=== PATIENT | male | born 1945 | race Caucasian/White ===

== ENCOUNTER 2024-03-15 12:26 | Emergency (ER) | payer OTHER, SELFPAY ==
[2024-03-15 12:31] VITALS: BP 117/72
[2024-03-15 12:38] VITALS: BMI 28.0
--- NOTE | 2024-03-15 12:44 | ED.GENMED ---
History of Present Illness
General
Chief Complaint: Cold/Flu/URI Symptoms
Time Seen by Provider: 03/15/24 12:42
History of Present Illness
History of Present Illness:
78-year-old male with history of hypertension presenting to the emergency department for generalized weakness and fatigue with cough. Patient reports he has been feeling this past few days. He notes positive exposure to COVID, his brother was
positive for COVID. Cough has been nonproductive. Notes diffuse bodyaches, upper back pain. He reports generalized fatigue and dyspnea. He has been taking aspirin for his symptoms as well as a flu medication. Denies any active chest pain.
Denies abdominal pain or vomiting. He has never had a COVID vaccination. He denies additional acute medical complaints.
Phy Exam
Physical Exam
Physical Exam:
General: Well-appearing, no clinical signs of dehydration, nontoxic and in no acute distress
HEENT: protecting airway
Neck: appears supple
CV: Normal heart rate, regular rhythm
Resp: No accessory muscle use, no increased work of breathing, lungs clear to auscultation bilaterally
Abd: Soft and non-distended, no tenderness to palpation
Extremities: No deformities, no swelling, no erythema
Neuro: alert, no focal neurologic deficit
: deferred
Rectal: deferred
Psych: Normal affect
Skin: Intact
Sepsis
Sepsis Screening
Sepsis Assessment: Sepsis Ruled Out
Sepsis Screen
Sepsis Screen: Sepsis Ruled Out
Date: 03/15/24
Time: 16:39
Course
Orders/Labs/Results
Orders:
Orders
03/15/24 12:43
Urinalysis Reflex To Culture Urgent
Date Specimen was Collected: 03/15/24
Time Specimen was Collected: 12:47
0.9% Sodium Chloride 1000 ml [Nss] 1,000 ml IV BOLUS
Acetaminophen [Tylenol] 1,000 mg PO NOW STA
CR Chest - 2 Views Urgent
Comment:
Reason For Exam: cough, covid exposure
03/15/24 12:51
Complete Blood Count/With Diff Urgent
Comprehensive Metabolic Panel Urgent
Lactic Acid Q4H
Comment: CANCEL 2nd LACTIC ACID IF 1st LACTIC ACID IS LESS THAN 2
Influenza A+B Rapid Molecular Urgent
[facility] Source: Nasal Swab
Specimen Description:
03/15/24 12:54
COVID-19 Antigen Urgent
Source: Nasal Swab
03/15/24 15:56
Electrocardiogram (*1) Stat
Reason for Study: Chest Pain
Electrocardiogram (*1) Urgent
EKG- Treatment ONCE
03/15/24 16:45
Lactic Acid Q4H
Comment: CANCEL 2nd LACTIC ACID IF 1st LACTIC ACID IS LESS THAN 2
Abnormal Lab Results
03/15/24 03/15/24
12:51 12:54
RBC 4.11 L 10^6/uL
(4.70-6.10)
Hct 38.0 L %
(39.0-52.0)
MCH 32.4 H pg
(27.0-31.0)
Absolute Monos (auto) 1.1 H 10^3/uL
(0.1-0.6)
Immature Gran % 0.6 H %
(0-0.5)
Lymphocytes % 17.1 L %
(20.5-51.1)
Monocytes % 15.7 H %
(1.7-9.3)
BUN 21 H mg/dl
(9-20)
Glucose 106 H mg/dl
(70-99)
AST 256 H U/L
(17-59)
SARS-CoV-2 Antigen Positive A
(Negative)
03/15/24 12:51
03/15/24 12:51
Vital Signs
Initial and Last Documented VS:
Initial Vital Signs
Temp Pulse Resp BP Pulse Ox
102.9 F H 105 20 117/72 96
03/15/24 12:31 03/15/24 12:31 03/15/24 12:31 03/15/24 12:31 03/15/24 12:31
Last Documented Vital Signs
Temp Pulse Resp BP Pulse Ox
102.9 F H 87 19 97/52 95
03/15/24 12:31 03/15/24 14:00 03/15/24 14:00 03/15/24 14:00 03/15/24 14:00
MDM/Problems Addressed
MDM/Problems Addressed:
78-year-old male with history of hypertension presenting to the emergency department for generalized fatigue, dyspnea, muscle aches. Vital signs on arrival are significant for fever.
On exam patient is in no acute distress, no respiratory distress, unremarkable cardiac and pulmonary exam. Patient reports positive COVID exposure. Patient symptoms are consistent with a flulike illness, suspected COVID-19 infection. Will screen
with laboratory analysis and chest x-ray imaging. Will send COVID and flu swab. Tylenol administered for fever. Will also budget clerk IV fluids.
15:00 - Labs are unremarkable, no leukocytosis. Chest x-ray without acute cardiopulmonary disease. Patient's COVID is positive, consistent with his symptoms. Again patient is in no acute respiratory distress. Will perform ambulatory pulse ox.
Feel patient can be appropriately managed at home with supportive therapy, hydration, fever control. Return precautions discussed and patient verbalized understanding
*Critical Care Note
Total Time (30-74mins, 75-104mins- exclusive of procedures): Not Applicable
ED Attending Note
-
Portions of this chart may have been created with voice recognition software.� Occasional wrong word or��sound alike� substitutions may have occurred due to the inherent limitations of voice recognition software.
Discharge Plan
Departure
Patient Disposition: Home (Routine Discharge)
Date of Disposition: 03/15/24
Time of Disposition: 15:57
Patient with high blood pressure during this ER visit?: No
Condition: Good
Discharge Problem:
COVID-19
Instructions: Viral Syndrome (DC), COVID-19 ED
Referrals:
Arlen Valdez MD [Family Provider] -
Activity Restrictions/Additional Instructions:
You were seen in the emergency department for cough, shortness of breath, fatigue
You were found to have COVID-19. Please take Tylenol and Motrin for your fever. Return immediately to the emergency department with any increased difficulty breathing, increased fatigue or difficulty getting around your house, chest pain, or fever
greater than 100.4 that does not resolve with Tylenol or Motrin
Please follow-up closely with your primary care physician.
Return to the emergency department for any worsening of your symptoms, or any development of chest pain, difficulty breathing, abdominal pain with persistent vomiting and inability to tolerate food or liquid by mouth (concern for dehydration),
weakness, headache or confusion, fever greater than 100.4, or any additional symptoms that are concerning to you.
Thank you for choosing [facility].
Interventions
Interventions:
*Risk Screen - Suicide Last Done: 03/15/24 12:31
*General Assessment Last Done: 03/15/24 12:31
*Neglect/Abuse Screening Last Done: 03/15/24 12:31
*ED COVID-19 Vaccine History Last Done: 03/15/24 12:38
ED- Pulmonary Assessment Last Done: 03/15/24 14:00
Discharge Date and Time
Print Language: ARABIC
[2024-03-15] MEDS: TYLENOL 1000 MG PO (12:54)
[2024-03-15] MEDS: NSS 1000 IV (12:55)
[2024-03-15 13:00] VITALS: BP 111/79
[2024-03-15 13:13] LABS: % Basophils 0.7 % (0-2); % Eosinophils 0.4 % (0-6); % Immature Granulocytes 0.6 % (0-0.5); % Lymphocytes 17.1 % (20.5-51.1); % Monocytes 15.7 % (1.7-9.3); % Neutrophils 65.5 % (42.2-75.2); Absolute Basophils 0.1 10^3/uL (0-0.2); Absolute Lymphocytes 1.2 10^3/uL (1.2-3.4); Absolute Monocytes 1.1 10^3/uL (0.1-0.6); Absolute Neutrophils 4.7 10^3/uL (1.4-6.5); Hemoglobin 13.3 g/dL (13.0-18.0); Mean Corpuscular Hgb 32.4 pg (27.0-31.0); Mean Corpuscular Volume 92.5 fL (80.0-94.0); Mean Platelet Volume 9.4 fL (7.4-10.4); Nucleated Red Blood Cells % 0 % (-); Platelet Count 194 10^3/uL (130-400); Red Blood Cell Count 4.11 10^6/uL (4.70-6.10); Red Cell Dist. Width 12.9 % (11.5-14.5); White Blood Cell Count 7.2 10^3/uL (4.8-10.8)
[2024-03-15 13:19] LABS: ALT (SGPT) 44 U/L (0-50); AST (SGOT) 256 U/L (17-59); Albumin 3.9 g/dl (3.5-5.0); Alkaline Phosphatase 72 U/L (38-126); Blood Urea Nitrogen 21 mg/dl (9-20); Calcium 8.5 mg/dl (8.4-10.2); Carbon Dioxide 26 mmol/L (22-30); Chloride 98 mmol/L (98-107); Estimated Creatinine Clearance 49 ml/min; Glucose 106 mg/dl (70-99); Potassium 4.1 mmol/L (3.5-5.1); Sodium 136 mmol/L (135-145); Total Bilirubin 0.4 mg/dl (0.2-1.3); Total Protein 6.5 g/dl (6.3-8.2); eGFR > 60.00
[2024-03-15 13:20] LABS: Lactic Acid 1.8 mmol/L (0.7-2.0)
[2024-03-15 13:37] LABS: COVID-19 Antigen Positive (Negative)
[2024-03-15 14:00] VITALS: BP 97/52
[2024-03-15 15:02] VITALS: BP 106/55
[2024-03-15 15:25] VITALS: BP 98/67
== END 2024-03-15 16:30 | disposition home or self-care (01) ==
LOC: EMR 12:26
PROVIDERS: EMERGENCY PHYSICIAN Student in an Organized Health Care Education/Training Program; FAMILY PHYSICIAN Family Medicine
DX: U07.1 COVID-19 (principal); R50.9 Fever, unspecified; I10 Essential (primary) hypertension; Z28.310 Unvaccinated for COVID-19
CPT/HCPCS: 96360; 99284; 71046; 80053; 83605; 85025; 87502; 87811; 93005